=== PATIENT | female | born 2005 | race Caucasian/White ===

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

== ENCOUNTER → 2023-02-18 13:13 | Outpatient (CLI) | payer OTHER, SELFPAY ==
--- NOTE | ~2023-02-18 | US_ITS ---
EXAMINATION: US pelvic complete w TV DATE: 02/18/2023 13:51 INDICATION: Unspecified ovarian cyst, left side. TECHNIQUE: Multiple transabdominal and transvaginal sonographic images of the pelvis were obtained. COMPARISON: Ultrasound pelvis 08/29/2022, 03/29/2022 FINDINGS: TRANSABDOMINAL ULTRASOUND: The uterus measures 7.7 x 4.0 x 5.2 cm. There is physiologic free fluid in the pelvis. TRANSVAGINAL ULTRASOUND: The endometrial complex measures 2 mm in thickness. There is an intrauterine device in expected posit ion. The right ovary measures 3.4 x 1.7 x 2.3 cm. The left ovary measures 2.6 x 1.8 x 2.1 cm. There i s normal vascular flow in the ovaries. IMPRESSION: 1. Normal ovaries. 2. Intrauterine device in expected position. Reviewed, dictated and finalized at location E.
== END ==
PROVIDERS: PCP Nurse Practitioner; Visit Provider Nurse Practitioner
DX: N83.202 Unspecified ovarian cyst, left side (principal); Z97.5 Presence of (intrauterine) contraceptive device
CPT/HCPCS: 76830; 76856